=== PATIENT | male | born 1955 | race Hispanic/Latino ===

== ENCOUNTER 2016-10-08 08:09 | Emergency (ER) | payer OTHER, BC ==
[2016-10-08 08:17] VITALS: RESP 16; TEMP 98.3
[2016-10-08] MEDS ORDERED: Lidocaine 2% Inj (20ml) INFIL ONE (08:22)
[2016-10-08] MEDS ORDERED: Lidocaine 2% Inj (20ml) ONE (08:29)
--- NOTE | 2016-10-08 08:49 | C.PDOC ---
History Of Present Illness Patient is a 61 year old male who presents to the ER with a complaint lacerations to his right and left hands. Patient states he tripped and fell on a urinal, causing it to break and cut himself on the shards of porcelain. Denies weakness or numbness to the hands. Time Seen by Provider: 10/08/16 08:19 Chief Complaint (Nursing): Abnormal Skin Integrity History Per: Patient History/Exam Limitations: no limitations Onset/Duration Of Symptoms: Hrs Current Symptoms Are (Timing): Still Present Location Of Injury: Right: Hand, Left: Hand Quality Of Symptoms: Other (Laceration) Recent travel outside of the [place]: No Past Medical History Reviewed: Historical Data, Nursing Documentation, Vital Signs Vital Signs: Last Vital Signs Temp 98.3 F 10/08/16 08:11 Pulse 98 H 10/08/16 08:11 Resp 16 10/08/16 08:11 BP 135/79 10/08/16 08:11 Pulse Ox 100 10/08/16 09:12 - Medical History PMH: HTN, Hypercholesterolemia Surgical History: No Surg Hx Family History: States: Unknown Family Hx - Social History Hx Alcohol Use: No Hx Substance Use: No - Immunization History Hx Tetanus Toxoid Vaccination: No Hx Influenza Vaccination: No Review Of Systems Constitutional: Negative for: Fever, Chills Skin: Positive for: Other (Lacerations) Neurological: Negative for: Weakness, Numbness Physical Exam - Physical Exam Appears: Non-toxic, No Acute Distress Skin: Normal Color, Warm, Dry Head: Atraumatic, Normacephalic Oral Mucosa: Moist Extremity: Normal ROM, Capillary Refill, Other (Laceration to right and left volar aspect of 4th fingers; deeper to left.) Pulses: Left Radial: Normal, Right Radial: Normal Neurological/Psych: Oriented x3, Normal Speech, Normal Cognition ED Course And Treatment O2 Sat by Pulse Oximetry: 100 (Room air) Pulse Ox Interpretation: Normal Progress Note: Tetanus vaccine administered. Laceration - Laceration Repair No standard instances Wound Length (In cm): 3 cm laceration left 4 th, 1 cm laceration left 3 rd, 2 cm laceration right Description Of Wound: Linear, Clean Anesthesia: Lidocaine 1% Wound Examination: Irrigated With Saline Wound Closure: Suture Suture Technique And Material Used: Interrupted Wound Complexity: Simple Disposition Counseled Patient/Family Regarding: Diagnosis, Need For Followup - Disposition Disposition: HOME/ ROUTINE Disposition Time: 09:20 Condition: GOOD Instructions: Finger Laceration (ED) - POA Present On Arrival: None - Clinical Impression Clinical Impression: Laceration, Abrasion, Finger laceration - Scribe Statement The provider has reviewed the documentation as recorded by the Scribelida Caldwell All medical record entries made by the Matthewibelida were at my direction and personally dictated by me. I have reviewed the chart and agree that the record accurately reflects my personal performance of the history, physical exam, medical decision making, and the department course for this patient. I have also personally directed, reviewed, and agree with the discharge instructions and disposition.
[2016-10-08 09:46] VITALS: BP 127/74; PULSE 84; O2SAT 97
== END 2016-10-08 09:47 | disposition home or self-care (01) ==
LOC: C.ER 08:09
DX: S61.412A Laceration without foreign body of left hand, initial encounter (principal); S61.411A Laceration without foreign body of right hand, initial encounter; W18.09XA Striking against other object with subsequent fall, initial encounter; Y92.89 Other specified places as the place of occurrence of the external cause